=== PATIENT | female | born 1970 | race African-American/Black ===

== ENCOUNTER → 2017-03-03 | Emergency (ER) | payer OTHER ==
[~2017-03-03] MED LIST: ACETAMINOPHEN 500 MG TABLET (FP) PO ONE; IBUPROFEN 600 MG TABLET (FP) PO ONE
[2017-03-03 17:38] VITALS: BMI 18.6
--- NOTE | 2017-03-03 18:03 | PDOC ---
History of Present Illness - General History Source: Patient Exam Limitations: No Limitations - History of Present Illness Initial Comments: 03/03/17 18:22 The patient is a 46 year old female, with significant past medical history PFO ( on baby aspirin daily), who presents today complaining of a chronic headache exacerbation. The patient describes the headache as a tingling sensation deep in the left side of her head. She reports intermittent sharp pain that radiates from the left side of the head to the forehead. She reports that the headache is accompanied by tearing in the left eye. She notes that she has previously been treated with antibiotics and nasal decongestants without relief for a presumed sinus infection. No head trauma. No gross focal neurological deficits. No changes in vision. No lightheadedness, dizziness. No vomiting, nausea, fever, chills. No abdominal pain, diarrhea. Allergies: none reported Familial Hx: Paternal cluster headaches Social Hx: No tobacco use PCP- Dr. 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 Melton <Johana Infante - Last Filed: 03/03/17 18:22> <Sofía Agrawal - Last Filed: 03/04/17 01:42> - General Chief Complaint: Headache Stated Complaint: PAIN/HEADACHE Time Seen by Provider: 03/03/17 17:47 Past History <Johana Infante - Last Filed: 03/03/17 18:22> - Past Medical History Anemia: No Asthma: No Cancer: No Cardiac Disorders: Yes (asd) CVA: No COPD: No CHF: No Dementia: No Diabetes: No GI Disorders: Yes (gerd) Disorders: No HTN: No Hypercholesterolemia: No Liver Disease: No Seizures: No Thyroid Disease: No - Immunization History Immunization Up to Date: Yes - Psycho/Social/Smoking Cessation Hx Anxiety: No Suicidal Ideation: No Smoking Status: Yes Smoking History: Never smoked Have you smoked in the past 12 months: Yes Number of Cigarettes Smoked Daily: 0 If you are a former smoker, when did you quit?: 2MONTHS AGO Information on smoking cessation initiated: No 'Breaking Loose' booklet given: 06/23/13 Hx Alcohol Use: No Drug/Substance Use Hx: No Substance Use Type: None <Sofía Agrawal - Last Filed: 03/04/17 01:42> - Past Medical History Allergies/Adverse Reactions: Allergies Allergy/AdvReac Type Severity Reaction Status Date / Time No Known Allergies Allergy Verified 03/03/17 17:33 Home Medications: Ambulatory Orders Aspirin [Aspirin EC] 325 mg PO DAILY 08/16/13 Review of Systems - Review of Systems Able to Perform ROS?: Yes Comments:: 03/03/17 18:22 CONSTITUTIONAL: Absent: fever, chills, diaphoresis, generalized weakness, malaise, loss of appetite HEENT: Present: tearing in the left eye Absent: rhinorrhea, nasal congestion, throat pain, throat swelling, difficulty swallowing, mouth swelling, ear pain, eye pain, visual Changes CARDIOVASCULAR: Absent: chest pain, syncope, palpitations, irregular heart rate, lightheadedness , peripheral edema RESPIRATORY: Absent: cough, shortness of breath, dyspnea with exertion, orthopnea, wheezing, stridor, hemoptysis GASTROINTESTINAL: Absent: abdominal pain, abdominal distension, nausea, vomiting, diarrhea, constipation, melena, hematochezia GENITOURINARY: Absent: dysuria, frequency, urgency, hesitancy, hematuria, flank pain, genital pain MUSCULOSKELETAL: Absent: myalgia, arthralgia, joint swelling SKIN: Absent: rash, itching, pallor HEMATOLOGIC/IMMUNOLOGIC: Absent: easy bleeding, easy bruising, lymphadenopathy, frequent infections ENDOCRINE: Absent: unexplained weight gain, unexplained weight loss, heat intolerance, cold intolerance NEUROLOGIC: Present: left sided headache Absent: focal weakness or paresthesias, dizziness, unsteady gait, seizure, mental status changes, bladder or bowel incontinence PSYCHIATRIC: Absent: anxiety, depression, suicidal or homicidal ideation, hallucinations. <Johana Infante - Last Filed: 03/03/17 18:22> *Physical Exam - Vital Signs Last Vital Signs Temp Pulse Resp BP Pulse Ox 98.0 F 76 18 136/81 100 03/03/17 17:34 03/03/17 17:34 03/03/17 17:34 03/03/17 17:34 03/03/17 17:34 - Physical Exam Comments: 03/03/17 18:23 GENERAL: Well developed, well nourished. Awake and alert. In no acute distress. HEENT: Normocephalic, atraumatic. PERRLA, EOMI. No conjunctival pallor. Sclera are non- icteric. Moist mucous membranes. Oropharynx is clear. NECK: Supple. Full ROM. No JVD. Carotid pulses 2+ and symmetric, without bruits. No thyromegaly. No lymphadenopathy. CARDIOVASCULAR: Regular rate and rhythm. No murmurs, rubs, or gallops. Distal pulses are 2+ and symmetric. PULMONARY: No evidence of respiratory distress. Lungs clear to auscultation bilaterally. No wheezing, rales or rhonchi. ABDOMINAL: Soft. Non-tender. Non-distended. No rebound or guarding. No organomegaly. Normoactive bowel sounds. MUSCULOSKELETAL Normal range of motion at all joints. No bony deformities or tenderness. No CVA tenderness. EXTREMITIES: No cyanosis. No clubbing. No edema. No calf tenderness. SKIN: Warm and dry. Normal capillary refill. No rashes. No jaundice. NEUROLOGICAL: Alert, awake, appropriate. Cranial nerves 2-12 intact. No deficits to light touch and temperature in face, upper extremities and lower extremities. No motor deficits in the in face, upper extremities and lower extremities. Normoreflexic in the upper and lower extremities. Normal speech. Toes are downgoing bilaterally. Gait is normal without ataxia. PSYCHIATRIC: Cooperative. Good eye contact. Appropriate mood and affect. <Johana Infante - Last Filed: 03/03/17 18:22> - Vital Signs Last Vital Signs Temp Pulse Resp BP Pulse Ox 98.0 F 76 18 136/81 100 03/03/17 17:34 03/03/17 17:34 03/03/17 17:34 03/03/17 17:34 03/03/17 17:34 <Sofía Agrawal - Last Filed: 03/04/17 01:42> Medical Decision Making - Medical Decision Making 03/04/17 01:39 46 yo female p/w concern of persistent headaches. She has been treated for sinusitis in the past -no fever,no visual changes,no focal neuro deficits ct head no sinusitis,no acute intracranial pathology IMP headache referred to neurology for further care <Sofía Agrawal - Last Filed: 03/04/17 01:42> *DC/Admit/Observation/Transfer - Attestations Scribe Attestion: 03/03/17 18:23 Documentation prepared by ROBIN Gonzalez, acting as medical staff credentialing coordinator for Sofía Agrawal MD. <Johana Infante - Last Filed: 03/03/17 18:22> <Sofía Agrawal - Last Filed: 03/04/17 01:42> Diagnosis at time of Disposition: Headache Qualifiers: Headache type: cluster Headache chronicity pattern: unspecified pattern Intractability: not intractable Qualified Code(s): G44.009 - Cluster headache syndrome, unspecified, not intractable - Discharge Dispostion Disposition: HOME Condition at time of disposition: Stable - Referrals Referrals: Patrick Soni MD [Primary Care Provider] - Damian Stephens MD [Staff Physician] - Kiki Pak MD [Staff Physician] - - Patient Instructions Printed Discharge Instructions: DI for Hormonal and Tension Headaches Additional Instructions: please follow up with a neurologist if your symptoms persist
[2017-03-03 20:51] VITALS: BP 111/70; PULSE 80; TEMP 98.6
== END | disposition home or self-care (01) ==
LOC: JER 17:32
DX: G44.009 Cluster headache syndrome, unspecified, not intractable (principal); K21.9 Gastro-esophageal reflux disease without esophagitis
CPT/HCPCS: 70450-TC; 84703; 99283-25